=== PATIENT | female | born 1945 | race Caucasian/White ===

== ENCOUNTER → 2018-03-19 | Outpatient (CLI) | payer OTHER ==
[~2018-03-19] MED LIST: ACCUNEB SO1.25 MG/1 INH; ASPIRIN EC81 M1 PO; ASPIRIN81 M2 PO; BENADRYL25 MG PO; CLARITIN-D 24 H1 TA1 PO; CLARITIN10 MG; CLONAZEPAM 1 MG1 M1 PO; FLEXERIL PO; FOLIC ACID 40400 MC1 PO; FOLIC ACID1 MG; LUNESTA2 MG PO; MURO-128 OPHTH3.5 G1 OPHTHALMIC; MURO-12815 ML/BOT; NORCO 5-325 TA1 EACH PO; PREDNISONE 10 M10 MG PO; PRILOSEC40 MG PO; VITAMIN B-12500 MCG PO; [UNRECOGNIZED DRUG - OTHER] PO
== END ==
LOC: M.RAD 11:03
DX: M19.042 Primary osteoarthritis, left hand (principal); M19.041 Primary osteoarthritis, right hand

== ENCOUNTER → 2018-03-27 | Outpatient (CLI) | payer OTHER | LOC: M.RAD 03-21 13:36 | DX: M54.16 Radiculopathy, lumbar region (principal); M85.88 Other specified disorders of bone density and structure, other site; M16.12 Unilateral primary osteoarthritis, left hip ==

== ENCOUNTER → 2019-04-28 | Outpatient (CLI) | payer OTHER | LOC: M.RAD 10:22 | DX: Z12.31 Encounter for screening mammogram for malignant neoplasm of breast (principal) ==

== ENCOUNTER → 2020-07-12 | Outpatient (CLI) | payer MEDICARE | LOC: M.RAD 10:01 | PROVIDERS: ATTEND Registered Nurse Diabetes Educator | DX: Z12.31 Encounter for screening mammogram for malignant neoplasm of breast (principal) ==

== ENCOUNTER → 2020-07-20 | Outpatient (CLI) | payer MEDICARE | LOC: M.ULTRA 12:51 | PROVIDERS: ATTEND Registered Nurse Diabetes Educator | DX: N60.01 Solitary cyst of right breast (principal); N63.10 Unspecified lump in the right breast, unspecified quadrant ==